=== PATIENT | male | born 1995 | race Asian ===

== ENCOUNTER 2017-12-29 16:07 | Emergency (ER) | payer OTHER ==
[~2017-12-29] VITALS: Ht 172.7 cm; Wt 52.2 kg
[~2017-12-29 16:07] MED LIST: AMOX-358 PO; LORA1TAB59 PO; TRIA10.8 NSEACH
--- NOTE | 2017-12-29 16:29 | ED GI ---
General Chief Complaint: Abdominal/GI Problems Stated Complaint: CONSTIPATION/STOMACH PAIN Source of Information: Patient, Family (cousin) Exam Limitations: No Limitations History of Present Illness Date Seen by Provider: Dec 29, 2017 Time Seen by Provider: 16:19 Initial Comments Patient presents to ER by private conveyance with a chief complaint that he had an anterior cruciate ligament repair by Drs. Peña for 5 days ago and has been using the hydrocodone 7.5 mg every day per the prescriptions orders but he has not had a bowel movement since the time of the surgery and he really would like to have a bowel movement. He is not really having any bowel pain nor is he having nausea vomiting. He has had no other surgeries on his abdomen. No other significant medical history and does not take any other medicines. Allergies and Home Medications Allergies Coded Allergies: No Known Drug Allergies (Unverified , 08/28/15) Home Medications Hydrocodone/Acetaminophen 1 Each Tablet, (Reported) Review of Systems Constitutional: No chills, No fever EENTM: No Blurred Vision, No Double Vision Respiratory: Denies Cough, Denies Shortness of Air Cardiovascular: Denies Chest Pain, Denies Lightheadedness Gastrointestinal: Denies Abdomen Distended, Denies Abdominal Pain, Constipated , Denies Diarrhea, Denies Nausea, Denies Vomiting Genitourinary: Denies Burning, Denies Discharge, Denies Drainage Past Wkijnxu-Dshfsv-Xytsre Hx Patient Social History Alcohol Use: Denies Use Recreational Drug Use: No Smoking Status: Never a Smoker Recent Foreign Travel: No Contact w/Someone Who Travel: No Reproductive System Hx Reproductive Disorders: No Physical Exam Vital Signs VS - Last 72 Hours, by Label 12/29/17 16:15 Temp 98.0 Pulse 101 Resp 18 B/P (MAP) 128/97 (107) Pulse Ox 96 Capillary Refill : General Appearance: WD/WN, no apparent distress HEENT: PERRL/EOMI, pharynx normal Cardiovascular: normal peripheral pulses, regular rate, rhythm Peripheral Pulses: 2+ Dorsalis Pedis (R), 2+ Left Dors-Pedis (L) Gastrointestinal: normal bowel sounds, non tender, soft Progress/Results/Core Measures Results/Orders Vital Signs/I&O Vital Sign - Last 12Hours 12/29/17 16:15 Temp 98.0 Pulse 101 Resp 18 B/P (MAP) 128/97 (107) Pulse Ox 96 Progress Note : Time: 16:26 Progress Note Good bowel sounds all 4 quadrants when ileus is unlikely. This is just opioid- induced obstipation. We'll give him a regimen and have him follow-up with surgeon if needed. Departure Impression Impression: Primary Impression: Therapeutic opioid induced constipation Disposition: HOME, SELF-CARE Condition: Stable Departure-Patient Inst. Decision time for Depature: 16:27 Referrals: NO,LOCAL PHYSICIAN (PCP/Family) Primary Care Physician Patient Instructions: Constipation, Adult (DC) Add. Discharge Instructions: Drink lots of fluids and eat a high-fiber foods that are STEMI/woody such as broccoli, Kale, spinach etc. system support specialist canister of MiraLAX and mix 1 capful in 8 ounces of whatever fluid of your choice and take it from 1-4 times a day as needed until you get your bowels regulated. If it's not working you should add a daily enema such as a fleets enema alongside the MiraLAX. If you're still not getting relief follow-up with Drs. Peña. For all other concerns with your knee follow-up with your surgeon. Expect relief over the next 3-4 days. All discharge instructions reviewed with patient and/or family. Voiced understanding. Scripts Na Johanna,M-B/Lowell SullivanBa (Fleet Enema) 133 Ml Enema 133 ML RC DAILY Y for CONSTIPATION-2ND LINE, #1 EA 0 Refills Prov: MONICA POOL 12/29/17 Polyethylene Glycol 3350 (Miralax) 17 Gm Powd.pack 17 GM PO QID Y for CONSTIPATION-1ST LINE, #1 EACH 0 Refills Prov: MONICA POOL 12/29/17 Copy Copies To 1: STEPHANIE PEÑA MD, TITUS J Dec 29, 2017 16:29
[2017-12-29] MEDS ORDERED: HYDR-34 (16:30)
[2017-12-29] MEDS ORDERED: NA P133E22 RC (16:32)
[2017-12-29] MEDS ORDERED: POLY17PO6 PO (16:32)
[2017-12-29 16:47] VITALS: BP 128/97
== END 2017-12-29 16:47 | disposition home or self-care (01) ==
LOC: EDUNIT# 16:07 → ER 16:09
DX: K59.03 Drug induced constipation (principal); T40.2X5A Adverse effect of other opioids, initial encounter; Z98.890 Other specified postprocedural states
CPT/HCPCS: 99282

== ENCOUNTER 2018-03-10 16:02 | Outpatient (RCR) | payer OTHER ==
[~2018-03-10 16:02] MED LIST changes: +HYDR-34; +NA P133E22 RC; +POLY17PO6 PO
== END 2018-03-10 16:30 | disposition home or self-care (01) ==
PROVIDERS: ATTEND Orthopaedic Surgery
DX: S83.512D Sprain of anterior cruciate ligament of left knee, subsequent encounter (principal); X58.XXXD Exposure to other specified factors, subsequent encounter

== ENCOUNTER 2019-11-11 02:40 | Emergency (ER) | payer OTHER ==
[~2019-11-11] VITALS: Ht 167.7 cm; Wt 61.0 kg
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
[2019-11-11] MEDS ORDERED: CEPH-507 PO (03:20)
[2019-11-11 03:31] VITALS: BP 120/90
== END 2019-11-11 03:32 | disposition home or self-care (01) ==
LOC: EDUNIT# 02:40 → ER 02:43
DX: T65.91XA Toxic effect of unspecified substance, accidental (unintentional), initial encounter (principal); T28.8XXA Corrosion of internal genitourinary organs, initial encounter; T32.0 Corrosions involving less than 10% of body surface
CPT/HCPCS: 99282

== ENCOUNTER 2019-12-26 17:48 | Emergency (ER) | payer OTHER ==
[~2019-12-26] VITALS: Ht 162 cm; Wt 59.4 kg
[~2019-12-26 17:48] MED LIST changes: +CEPH-507 PO
[2019-12-26] MEDS ORDERED: IBUPROFEN 800 MG (MOTRIN) TAB PO ONE (20:15)
--- NOTE | 2019-12-26 20:24 | ED Cough/URI ---
General Chief Complaint: Cough/Cold/Flu Symptoms Stated Complaint: FEVER/COUGH/HEADACHE Nursing Triage Note: PT PRESENTS TO THE ED AMBULATORY C/O COUGH, CHILLS AND HEADACHE THAT ONSET YESTERDAY AROUND NOON. Sepsis Screen: Possible Severe Sepsis Risk Source: patient Exam Limitations: no limitations History of Present Illness Date Seen by Provider: Dec 26, 2019 Time Seen by Provider: 20:05 Initial Comments Patient resents to ER by private conveyance with chief complaint of dry cough, malaise, body aches and fever Tmax of 100.6F since yesterday. No history of lung disease. Does smoke one pack per day. No significant medical history. He has not taken any antipyretics. His girlfriend has similar symptoms but she has not been anywhere to be diagnosed. He does not take any medications routinely. Allergies and Home Medications Allergies Coded Allergies: No Known Drug Allergies (Unverified , 08/28/15) Home Medications Albuterol Sulfate 1 Puff Puff, 2 PUFF IH Q4H PRN for WHEEZING 1 PUFF = 90 MCG Prescribed by: MONICA POOL on 12/26/192024 Benzonatate 100 Mg Capsule, 100 MG PO BID PRN for COUGH Prescribed by: MONICA POOL on 12/26/192024 Cephalexin 500 Mg Capsule, 500 MG PO TID Prescribed by: MONICA POOL on 11/11/19 0320 Na Phos,M-B/Na Phos,Di-Ba 133 Ml Enema, 133 ML RC DAILY PRN for CONSTIPATION-2ND LINE Prescribed by: MONICA POOL on 12/29/17 1632 Polyethylene Glycol 3350 17 Gm Powd.pack, 17 GM PO QID PRN for CONSTIPATION-1ST LINE Prescribed by: MONICA POOL on 12/29/17 1632 Prednisone 20 Mg Tab, 40 MG PO DAILY Prescribed by: MONICA POOL on 12/26/192024 Patient Home Medication List Home Medication List Reviewed: Yes Review of Systems Review of Systems Constitutional: chills, fever, malaise EENTM: nose congestion; No ear discharge, No ear pain, No blurred vision, No mouth swelling, No throat pain, No throat swelling Respiratory: cough; No phlegm, No short of breath, No wheezing Cardiovascular: No chest pain, No edema Gastrointestinal: No abdominal pain, No constipation, No nausea, No vomiting Genitourinary: No discharge, No dysuria Musculoskeletal: No back pain, No joint pain All Other Systems Reviewed Negative Unless Noted: Yes Past Jdfiieh-Ocassl-Lsoiqk Hx Patient Social History Alcohol Use: Occasionally Uses Alcohol Beverage of Choice: Beer (a couple on weekends) Recreational Drug Use: Yes Drug of Choice: cannabis once a week Smoking Status: Current Everyday Smoker Type Used: Cigarettes (pack per day) 2nd Hand Smoke Exposure: Yes Recent Foreign Travel: No Contact w/Someone Who Travel: No Recent Infectious Disease Expo: No Past Medical History Surgeries: Yes Orthopedic Respiratory: No Cardiac: No Neurological: No Reproductive Disorders: No Genitourinary: No Gastrointestinal: No Musculoskeletal: No Endocrine: No HEENT: No Cancer: No Psychosocial: No Integumentary: No Blood Disorders: No Physical Exam Vital Signs - First Documented 12/26/19 19:05 Temp 38.0 Pulse 98 Resp 20 B/P (MAP) 123/81 (95) Pulse Ox 100 O2 Delivery Room Air Capillary Refill : Less Than 3 Seconds Height: 5'8.00" Weight: 115lbs. oz. 52.029343vv; 22.00 BMI Method:Estimated General Appearance: WD/WN, no apparent distress Eyes: Bilateral Eye Normal Inspection, Bilateral Eye PERRL, Bilateral Eye EOMI HEENT: PERRL/EOMI, normal ENT inspection, TM abnormal (L) (mucoid effusion with minimal bulging but no erythema or injection), pharyngeal erythema; No tonsillar exudate Neck: non-tender, full range of motion, supple, normal inspection Respiratory: no respiratory distress, no accessory muscle use, rhonchi (faint, left-sided) Cardiovascular: normal peripheral pulses, regular rate, rhythm Neurologic/Psychiatric: alert, normal mood/affect, oriented x 3 Skin: normal color, warm/dry Progress/Results/Core Measures Suspected Sepsis Recent Fever Within 48 Hours: Yes Infection Criteria Present: Suspected New Infection New/Unexplained Altered Menta: No Sepsis Screen: Possible Severe Sepsis Risk SIRS Temperature: Pulse: 98 Respiratory Rate: 20 Blood Pressure 123 /81 Mean: 95 Results/Orders Micro Results Microbiology 12/26/19 Influenza Types A,B Antigen (BALBINA) - Final, Complete My Orders Orders - MONICA POOL Influenza A And B Antigens (12/26/19 18:43) Ibuprofen Tablet (Motrin Tablet) (12/26/19 20:15) Medications Given in ED Current Medications Medications Dose Ordered Sig/Edd Route Start Time Stop Time Status Last Admin Dose Admin Ibuprofen 800 mg ONCE ONCE PO 12/26/19 20:15 12/26/19 20:17 DC 12/26/19 20:23 800 MG Vital Signs/I&O 12/26/19 12/26/19 12/26/19 19:05 20:01 20:23 Temp 38.0 38.0 Pulse 98 Resp 20 B/P (MAP) 123/81 (95) Pulse Ox 100 O2 Delivery Room Air Room Air Capillary Refill : Less Than 3 Seconds Blood Pressure Mean: 95 Progress Note : Time: 20:22 Progress Note Influenza swab was negative. Chest x-ray for pneumonia versus bronchitis. Favoring bronchitis. We can put him out with an albuterol inhaler, Tessalon Perles and steroids if he is not improving later. Diagnostic Imaging Diagonstic Imaging: Xray Plain Films/CT/US/NM/MRI: chest (1v) Comments Potential right-sided perihilar congestion however this is not well seen on lateral view. Consistent with bronchitis. Reviewed: Reviewed by Me Departure Impression Primary Impression: Bronchitis Additional Impression: Mucoid otitis media of left ear with effusion Disposition: HOME, SELF-CARE Condition: Stable Departure-Patient Inst. Decision time for Depature: 21:23 Referrals: NO,LOCAL PHYSICIAN (PCP/Family) Primary Care Physician Patient Instructions: Acute Bronchitis, Adult (DC) Add. Discharge Instructions: Humidifiers and vapor rubs or helpful for congestion and cough. Tessalon Perles 1 capsule every 6 hours as needed for cough. If you have a coughing fit, wheezing or shortness of breath you may take 2 puffs of albuterol every 4 hours as needed. Tylenol 1000 mg every 8 hours as needed for fever, body aches or malaise. Ibuprofen 800 mg every 8 hours as needed for fever, body aches or malaise. Drink plenty of fluids. Expect this to last 5-7 days. If it's going beyond that then you may use the prednisone 2 tablets daily for 5 days. All discharge instructions reviewed with patient and/or family. Voiced understanding. Scripts Prednisone (Prednisone) 20 Mg Tab 40 MG PO DAILY for 5 Days, #10 TAB 0 Refills Prov: MONICA POOL 12/26/19 Benzonatate (TESSALON PERLES) 100 Mg Capsule 100 MG PO BID PRN for COUGH, #30 CAP 0 Refills Prov: MONICA POOL 12/26/19 Albuterol Sulfate (PROAIR HFA) 1 Puff Puff 2 PUFF IH Q4H PRN for WHEEZING, #1 EA 0 Refills 1 PUFF = 90 MCG Prov: MONICA POOL 12/26/19 Work/School Note: Work Release Form Date Seen in the Emergency Department: Dec 26, 2019 Return to Work: Dec 28, 2019 Restrictions: Return-No Fever (24hrs) MONICA POOL Dec 26, 2019 20:24
[2019-12-26] MEDS ORDERED: PRD20T PO (20:25)
[2019-12-26] MEDS ORDERED: RT-ALBUINH IH (20:25)
[2019-12-26] MEDS ORDERED: BENZ100C18 PO (20:25)
--- NOTE | 2019-12-26 20:57 | NUR ---
Report received from Yadira Ly at this time.
[2019-12-26 21:34] VITALS: BP 123/81
--- NOTE | 2019-12-26 22:00 | Diagnostic Imaging Report ---
INDICATION: High-grade fever, cough, chills, headaches. EXAMINATION: 2 view chest 12/26/2019 FINDINGS: 2 views of the chest. FINDINGS: The heart is unremarkable. Pulmonary vasculature normal. The lungs and pleural spaces clear. IMPRESSION: No acute process. Dictated by: Dictated on workstation # [id number]
== END 2019-12-26 21:35 | disposition home or self-care (01) ==
LOC: EDUNIT# 17:48 → ER 17:49
DX: J40 Bronchitis, not specified as acute or chronic (principal); H65.92 Unspecified nonsuppurative otitis media, left ear; F17.210 Nicotine dependence, cigarettes, uncomplicated
CPT/HCPCS: 71046; 87804